=== PATIENT | female | born 1945 | race African-American/Black ===

== ENCOUNTER 2022-12-16 14:24 | Emergency (ER) | payer OTHER ==
[~2022-12-16] VITALS: Ht 172.7 cm; Wt 86.0 kg
[2022-12-16] MEDS ORDERED: FAMOTIDINE 20MG/2ML VIAL IV STA (15:49)
[2022-12-16] MEDS ORDERED: ONDANSETRON HCL 4MG/2ML INJ IV STA (15:49)
[2022-12-16 16:18] LABS: HEMATOCRIT. 39.8 % (36.0-48.0); HEMOGLOBIN. 12.9 g/dL (12.0-16.0); MEAN CORPUSCULAR HEMOGLOBIN 32.1 pg (28.0-32.0); MEAN CORPUSCULAR VOLUME 98.9 fL (81.0-99.0); MEAN PLATELET VOLUME 8.2 fl (7.4-10.4); PLATELET 215 x1000/uL (130-400); RED BLOOD CELL COUNT 4.03 mill/uL (4.2-5.4); RED CELL DISTRIBUTION WIDTH 14.5 % (11.6-14.6)
[2022-12-16 16:20] LABS: CHLORIDE 107 mEq/L (98-107)
[2022-12-16 16:23] LABS: PROTHROMBIN TIME 11.2 sec (9.6-11.0)
[2022-12-16 17:14] LABS: PLATELET ESTIMATE NORMAL
[2022-12-16] MEDS ORDERED: MORPHINE SULFATE 4 MG/ML CPJ (NOT FOR IM USE) IV ONE (19:00)
[2022-12-16] MEDS ORDERED: CEFTRIAXONE SODIUM 1 G/VIAL IM ONE (19:00)
[2022-12-16] MEDS ORDERED: FAMOTIDINE 20MG/2ML VIAL IV NR (22:45)
[2022-12-16] MEDS ORDERED: ONDANSETRON HCL 4MG/2ML INJ IV NR (22:45)
[2022-12-16] MEDS ORDERED: CEFTRIAXONE 1GM PREMIX 50 ML IV SCH (22:45)
[2022-12-16] MEDS ORDERED: MORPHINE SULFATE 4 MG/ML CPJ (NOT FOR IM USE) IV NR (22:45)
[2022-12-16 23:30] VITALS: BP 142/84
[2022-12-16 23:42] LABS: CLARITY URINE CLOUDY (CLEAR); COLOR URINE YELLOW (YELLOW); KETONES URINE 3+ (NEGATIVE); LEUKOCYTE ESTERASE URINE 1+ (NEGATIVE); NITRITE URINE POSITIVE (NEGATIVE); OCCULT BLOOD URINE 1+ (NEGATIVE); PROTEIN URINE 1+ (NEGATIVE); SPECIFIC GRAVITY URINE 1.019 (1.005-1.030)
== END 2022-12-16 23:48 | disposition short-term general hospital (02) ==
LOC: ER 14:24 → CANBEDREQ 12-18 10:00
DX: R11.2 Nausea with vomiting, unspecified (principal); I49.9 Cardiac arrhythmia, unspecified
CPT/HCPCS: 36415; 74176; 80053; 81003; 83690; 84484; 85025; 85610; 87040; 87077; 87086; 87186; 93005; 96365; 96375; 99285; J0696; J2270; J2405; J3490